=== PATIENT | female | born 2000 | race Caucasian/White ===

== ENCOUNTER 2019-09-23 16:48 | Emergency (ER) | payer OTHER, SELFPAY ==
[2019-09-23 16:49] VITALS: BP 137/69; PULSE 124; RESP 18; TEMP 36.4; O2SAT 96; BMI 32.3
--- NOTE | 2019-09-23 18:06 | CT_ITS ---
STUDY: CT ABDOMEN AND PELVIS WITH CONTRAST REASON FOR EXAM: Female, 19 years old. Cramping, fever with blood in stool. RADIATION DOSAGE (If Supplied By Facility): CTDIvol = ( 11.89 ) mGy, DLP = ( 1073.33 ) mGycm TECHNIQUE: Transaxial images were obtained from the dome of the diaphragm to the symphysis pubis without oral contrast. Oral and amp; IV Gastrografin and amp; 100mL Isovue-370 50ML was administered. Sagittal and coronal images were reconstructed. Individualized dose optimization techniques were used for this CT. COMPARISON: None. FINDINGS: The visualized lung bases are unremarkable. The visualized portions of the heart are within normal limits. Normal liver. Normal gallbladder and extrahepatic biliary system. Normal spleen. Normal pancreas. Normal bilateral adrenal glands. Normal right kidney. Normal left kidney. Normal visualized stomach. Normal small intestine. There is apparent mild wall thickening and surrounding inflammatory stranding of the descending colon concerning for underlying colitis in the appropriate clinical setting. The appendix is visualized and appears normal. Normal abdominal aorta. Normal inferior vena cava. There is scattered lymph nodes along the right quadrant adjacent to the descending colon which have the appearance of reactive lymph nodes. Normal urinary bladder. Normal visualized uterus. Normal abdominal wall. Normal osseous structures. CT/Abdomen/Pelvis WITH Contrast IMPRESSION: 1. Limited evaluation without oral contrast extending to the colon with apparent pericolonic mesenteric stranding of the descending colon with question of wall thickening concerning for underlying inflammatory process such as colitis in the appropriate clinical setting. No evidence of appendiceal inflammation. There is adjacent appearance of reactive lymph nodes within the right quadrant. No evidence of fluid collection or abscess. Electronically Signed: Mike Valdez DO at 20:15 EDT , Service support ,
[2019-09-23 18:23] LABS: Absolute Lymphocyte Count 1.46 X10^3/uL (0.83-4.51); Absolute Neutrophil Count 2.7 X10^3/uL (2.0-7.7); Basophil# 0.05 X10^3/uL; Basophil% 0.9 % (0-1); Eosinophil# 0.02 X10^3/uL; Eosinophils% 0.4 % (0-5); Hematocrit 44.3 % (37-47); Hemoglobin 13.8 g/dL (12.0-15.0); Lymphocyte # 1.46 X10^3/ul (4.0); Lymphocyte % 27.1 % (19-41); Mean Corp Hgb Conc 31.2 g/dL (32-36); Mean Corpuscular Hgb 26.6 pg (27.0-32.0); Mean Corpuscular Volume 85.4 fL (81-99); Mean Platelet Vol. 11.4 fl (6.2-12.0); Monocyte# 1.12 X10^3/uL; Monocyte% 20.8 % (0-10); NRBC Flagged by Analyzer 0 % (0-5); Neutrophil # 2.71 X10^3/uL (2.7-7.7); Neutrophil % 50.4 % (47-70); POSITIVE MORPHOLOGY YES; Platelet Count 261 K/mm3 (150-450); RBC Distribution Width CV 13.2 % (11.6-14.6); RBC Distribution Width SD 41.5 fl (35.1-43.9); Red Blood Count 5.19 M/mm3 (4.2-5.4); White Blood Count 5.4 K/mm3 (4.4-11.0)
--- NOTE | 2019-09-23 18:30 | ED.VISSUMM ---
- ER Visit Summary Date of Service: 09/23/19 Chief Complaint: Vomiting and diarrhea History of Present Illness: The patient is a 19 F presenting with vomiting and diarrhea. Patient states this started on Friday. She has abdominal cramping, nausea, vomiting, diarrhea. She has had a fever. She denies recent travel. Denies recent antibiotics. Denies bad food exposure. States her mother is also ill with similar complaints. She has had 6 episodes of vomiting, 7 episodes of diarrhea today. She has had small amounts of blood in her stool. Denies other complaints. Physical Examination: Vitals are stable. Heart rate 124. Patient is afebrile. Alert no acute distress. HEENT exam is unremarkable. Neck is supple. Lungs are clear and equal bilaterally. Heart is regular tachycardic Abdomen is soft right lower quadrant tenderness with no guarding or rebound Extremities are unremarkable. Skin is warm and dry. No focal neurologic deficit. Remainder of exam is unremarkable. Emergency Department Course and Treatment: She was given IV fluids, morphine, Zofran. CBC, chemistries unremarkable. hCG negative. Urinalysis unremarkable. CT abdomen pelvis shows limited evaluation without oral contrast extending to the colon with apparent pericolonic mesenteric stranding of the descending colon with question of wall thickening concerning for underlying inflammatory process such as colitis in the appropriate clinical setting. No evidence of appendiceal inflammation. There is adjacent appearance of reactive lymph nodes within the right quadrant. No evidence of fluid collection or abscess. On reevaluation, patient feels improved. Repeat heart rate is 95. She is able to tolerate p.o. in the emergency department. Stool cultures were sent. She was given Cipro and Flagyl. Advised to follow-up with her primary care physician. Advised to return to ED for worsening complaints. Disposition: Discharge home Impression: Vomiting, diarrhea, colitis This note was generated with [employer] dictation software. It may contain incorrect words, spelling, and punctuation that were not noted in review of the chart prior to signing ED Disposition - Plan for ED Patient: Instructions: VOMITING AND DIARRHEA, Nonspecific (Adult) Prescriptions: Ciprofloxacin [Cipro] 500 mg PO BID #14 tab Prescription Printed metroNIDAZOLE [Flagyl] 500 mg PO Q8H #21 tab Prescription Printed proMETHazine tablet [Phenergan] 25 mg PO Q6H PRN PRN #10 tab PRN Reason: Nausea Prescription Printed Referrals: Clif Sun MD [Primary Care Provider] -
[2019-09-23 18:40] LABS: Anion Gap 8 (5-15); BUN 9 mg/dL (7-18); BUN/Creat Ratio 9.7 RATIO (10-20); Chloride 104 mmol/L (98-107); Creatinine, Serum 0.93 mg/dL (0.55-1.02); EST Glomerular Filtration Rate 82 mL/min (>60); Est Glom Filt Rate - Afr Amer 99 mL/min (>60); Estimated Creatinine Clearance 90.33 ml/min; Glucose 83 mg/dL (74-106); Potassium 3.3 mmol/L (3.5-5.1); Sodium Level 139 mmol/L (136-145)
[2019-09-23 18:50] LABS: Internal QC Validated? YES +Cl - CLEAR BKGD; Pregnancy, Serum, hCG Quali. NEGATIVE Negative
[2019-09-23 18:52] LABS: Differential Indicated SCAN CRITERIA MET
[2019-09-23] MEDS: Morphine 4 MG/ML Syringe IV (18:54)
[2019-09-23] MEDS: Ondansetron 4 MG/2 ML Vial IV (18:54)
[2019-09-23] MEDS: 0.9% Normal Saline 1,000 ML 1000 ML IV (18:54)
[2019-09-23 18:59] VITALS: PULSE 106; RESP 18; O2SAT 96
[2019-09-23 19:09] LABS: Platelet Estimate ADEQUATE (ADEQ); Red Cell Morphology NORM C+C NORMAL (NORM C&C)
[2019-09-23 20:11] VITALS: PULSE 98; RESP 16; O2SAT 99
[2019-09-23 21:28] LABS: Mucous, Urine 0 SEEN /hpf (<or=2+)
[2019-09-23 21:47] LABS: Color, Urine Yellow (Yellow); Glucose, Dipstick Normal (Normal); Ketone-Dipstick 15 mg/dl (Negative); Leukocyte Esterase-Dipstick 100 /ul (Negative); Nitrite-Dipstick Negative (Negative); Occult Blood-Urine 150 /ul (Negative); Protein-Dipstick 30 mg/dl (Negative); Specific Gravity, Urine 1.015 (1.002-1.030); Urine Bilirubin Dipstick Negative (Negative); Urine Clarity Cloudy (Clear); Urine Urobilinogen Normal (Normal)
[2019-09-23 21:53] LABS: Bacteria 1+ /hpf (None Seen); Red Blood Cells-Urine 0-5 SEEN /hpf (0-5); Squamous Epithelial Cells - UA 0-5 SEEN /hpf (5-10); White Blood Cells 0-5 SEEN /hpf (0-5)
--- NOTE | 2019-09-23 22:41 | ED.DEP ---
ED Disposition - Plan for ED Patient: Instructions: VOMITING AND DIARRHEA, Nonspecific (Adult) Prescriptions: Ciprofloxacin [Cipro] 500 mg PO BID #14 tablet metroNIDAZOLE [Flagyl] 500 mg PO Q8H #21 tablet proMETHazine tablet [Phenergan] 25 mg PO Q6H PRN PRN #10 tablet PRN Reason: Nausea Referrals: Clif Sun MD [Primary Care Provider] -
[2019-09-23] MEDS: metroNIDAZOLE 500 MG Tablet PO (22:49)
[2019-09-23] MEDS: Ciprofloxacin 500 MG Tablet PO (22:49)
[2019-09-24 11:55] LABS: Pathologist Review Reviewed
== END 2019-09-23 22:53 | disposition home or self-care (01) ==
LOC: ED 18:13
PROVIDERS: Emergency Provider Emergency Medicine; Family Provider Pediatrics; PCP Pediatrics
DX: K52.9 Noninfective gastroenteritis and colitis, unspecified (principal)
CPT/HCPCS: 74177; 80048; 81001; 84703; 85025; 87506; 96361; 96374; 96375; 99284; J7030; Q9967; A4216; J2405